=== PATIENT | female | born 1980 | race Caucasian/White ===

== ENCOUNTER 2017-10-15 20:03 | Emergency (ER) | payer MEDICAID ==
[2017-10-15 20:04] VITALS: BMI 34.1
[2017-10-15 20:25] VITALS: BP 130/66; PULSE 86; TEMP 98.7; O2SAT 98
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
[2017-10-15 22:46] VITALS: RESP 20
== END 2017-10-15 22:45 | disposition home or self-care (01) ==
LOC: C.ER 20:03
DX: Z04.8 Encounter for examination and observation for other specified reasons (principal)